=== PATIENT | male | born 1985 | race Caucasian/White ===

== ENCOUNTER 2016-08-10 12:01 | Emergency (ER) | payer OTHER ==
[2016-08-10 13:32] LABS: BASOPHIL 0.4 % (0-2); EOSINOPHIL 1.7 % (0-5); HCT 41.6 % (42.0-52.0); HGB 14.3 g/dl (13.2-18.0); LYMPHOCYTE 20.8 % (15-48); MCH 29.9 pg (25.0-31.0); MCHC 34.4 g/dL (32.0-36.0); MONOCYTE 8.7 % (0-12); MPV 9.7 fL (6.0-9.5); NEUTROPHIL 68.4 % (41-80); PLT 196 K/uL (150-400); RBC 4.78 M/uL (4.70-6.00); RDW 12.5 % (11.5-14.0); WBC 4.6 K/uL (4.0-10.5)
[2016-08-10 13:51] LABS: ALBUMIN 4.7 g/dL (3.5-5.0); BILIRUBIN - TOTAL 0.5 mg/dL (0.1-1.0); CREATININE 0.9 mg/dL (0.7-1.2); GLOBULIN (CALCULATION) 2.8 g/dL (2.2-4.2); POTASSIUM 4.2 mmol/L (3.5-5.1); TOTAL PROTEIN 7.5 g/dL (6.4-8.3)
== END 2016-08-10 14:31 | disposition home or self-care (01) ==
LOC: FER 12:01
PROVIDERS: Emergency Medicine
DX: S16.1XXA Strain of muscle, fascia and tendon at neck level, initial encounter (principal); R20.2 Paresthesia of skin; F41.9 Anxiety disorder, unspecified; F17.200 Nicotine dependence, unspecified, uncomplicated; Z79.899 Other long term (current) drug therapy
CPT/HCPCS: 36415; 80053; 85025; 99283